=== PATIENT | male | born 1985 | race Caucasian/White ===

== ENCOUNTER → 2016-04-13 | Outpatient (CLI) | payer OTHER ==
--- NOTE | 2016-04-14 01:38 | REP ---
Clinical: Chest pain . Comparison: None . Technique: PA and lateral. Findings: The mediastinum and cardiac silhouette are normal. The lung corea are clear and without acute consolidation, effusion, or pneumothorax. The skeletal structures are intact and normal. Impression: 1. No acute cardiopulmonary process. Signed by Rodolfo Villatoro MD 04/14/2016 01:29 A
== END ==
LOC: M WUC 13:17
PROVIDERS: ATTEND Nurse Practitioner Family
DX: R07.89 Other chest pain (principal)

== ENCOUNTER → 2016-05-12 | Outpatient (CLI) | payer OTHER ==
[~2016-05-12] MED LIST: E-Z PAQUE 60% w/v SUSP 355ML BOTTLE As Ordered ONE; E-Z-GAS II EFFERVESCENT PACKET (SODIUM BICARB./CITRIC ACID/SIMETHICONE) As Ordered ONE; E-Z-HD 98% w/w 340GM SUSP BTL As Ordered ONE; OMEP40CA2 PO
--- NOTE | 2016-05-12 10:36 | REP ---
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 Double contrast esophagram is performed. Swallowing mechanism appears normal with prompt passage of liquid barium through the oropharynx and hypopharynx into the esophagus. Esophagus is well distended with normal contour, caliber and peristalsis. There is no stricture or mass. There is free flow of barium through the gastroesophageal junction. There is no evidence of hiatal hernia. I did not see gastroesophageal reflux during this exam. IMPRESSION: Negative esophagram. Fluoroscopy time 56 seconds. Signed by Jerome Landeros MD 05/12/2016 04:55 P
== END ==
LOC: M RAD 08:54
PROVIDERS: ATTEND Physician Assistant Medical
DX: R13.10 Dysphagia, unspecified (principal); R12 Heartburn

== ENCOUNTER → 2016-05-15 | Outpatient (CLI) | payer OTHER ==
[~2016-05-15] VITALS: Ht 170.2 cm; Wt 73.0 kg
[~2016-05-15] MED LIST changes: -E-Z PAQUE 60% w/v SUSP 355ML BOTTLE As Ordered ONE; -E-Z-GAS II EFFERVESCENT PACKET (SODIUM BICARB./CITRIC ACID/SIMETHICONE) As Ordered ONE; -E-Z-HD 98% w/w 340GM SUSP BTL As Ordered ONE; +LIDOCAINE 2% INJ 100 MG/5 ML SDV (FOR ANES.) As Ordered ONE; +NS 1,000 ML IV SCH; +PROPOFOL 200 MG/20 ML VIAL As Ordered ONE
--- NOTE | 2016-05-15 14:38 | ROOR ---
Patient Name: Shaji Ryan Procedure Date: 05/15/2016 2:09 PM Date of : 1985 Age: 30 Room: [facility] Gender: Male Note Status: Finalized Procedure: Upper GI endoscopy Indications: Esophageal dysphagia, Dysphagia Providers: Bakari DOLL MD Referring MD: Kayden Corey Requesting Provider: Medicines: Monitored Anesthesia Care Complications: No immediate complications. Procedure: Pre-Anesthesia Assessment: - The heart rate, respiratory rate, oxygen saturations, blood pressure, adequacy of pulmonary ventilation, and response to care were monitored throughout the procedure. The Endoscope was introduced through the mouth, and advanced to the second part of duodenum. The upper GI endoscopy was accomplished without difficulty. The patient tolerated the procedure well. Findings: A low-grade of narrowing Schatzki ring (acquired) was found at the gastroesophageal junction. A TTS dilator was passed through the scope. Dilation with an 18-19-20 mm balloon dilator was performed to 18 mm. The dilation site was examined and showed moderate improvement in luminal narrowing. Non-severe esophagitis was found at the gastroesophageal junction. Biopsies were taken with a cold forceps for histology. This was biopsied with a cold forceps for evaluation of eosinophilic esophagitis. The entire examined stomach was normal. The examined duodenum was normal. Impression: - Low-grade of narrowing Schatzki ring with inflammation/esophagitis. Dilated. - Non-severe esophagitis and mild mucosal edema/longitudinal markings in mid esophagus. Biopsied to evaluate for reflux vs eosinophilic esophagitis. - Normal stomach. - Normal examined duodenum. Recommendation: - Observe patient's clinical course. - Use Prilosec (omeprazole) 40 mg PO BID. - (the script was sent to your pharmacy on file) - Telephone endoscopist for pathology results in 2 weeks. Bakari Doll MD Bakari DOLL MD 05/15/2016 2:38:15 PM This report has been signed electronically. Number of Addenda: 0 Note Initiated On: 05/15/2016 2:09 PM Estimated Blood Loss: Estimated blood loss: none.
--- NOTE | 2016-05-15 14:51 | ROOR ---
Patient Name: Shaji Ryan Procedure Date: 05/15/2016 2:10 PM Date of : 1985 Age: 30 Room: [facility] Gender: Male Note Status: Finalized Procedure: Colonoscopy Indications: Hematochezia, Change in bowel habits Providers: Bakari DOLL MD Referring MD: Kayden Corey Requesting Provider: Medicines: Monitored Anesthesia Care Complications: No immediate complications. Procedure: Pre-Anesthesia Assessment: - The heart rate, respiratory rate, oxygen saturations, blood pressure, adequacy of pulmonary ventilation, and response to care were monitored throughout the procedure. The Colonoscope was introduced through the anus and advanced to 8 cm into the ileum. The colonoscopy was performed without difficulty. The patient tolerated the procedure well. The quality of the bowel preparation was good. Findings: The perianal and digital rectal examinations were normal. Small Internal Hemorrhoids. The terminal ileum appeared normal. The entire examined colon appeared normal on direct and retroflexion views. Impression: - Small Internal Hemorrhoids. - The examined portion of the ileum was normal. - The entire colon is normal on direct and retroflexion views. - No specimens collected. Recommendation: - Use fiber, for example Citrucel, Fibercon, Konsyl or Metamucil. Bakari Doll MD Bakari DOLL MD 05/15/2016 2:50:44 PM This report has been signed electronically. Number of Addenda: 0 Note Initiated On: 05/15/2016 2:10 PM Estimated Blood Loss: Estimated blood loss: none.
[2016-05-15 15:15] VITALS: BP 113/80
== END ==
LOC: M OPP 11:05
PROVIDERS: ATTEND Internal Medicine Gastroenterology
DX: K92.1 Melena (principal); R19.4 Change in bowel habit; K64.8 Other hemorrhoids; R13.14 Dysphagia, pharyngoesophageal phase; K22.2 Esophageal obstruction; K20.0 Eosinophilic esophagitis; R12 Heartburn

== ENCOUNTER → 2017-04-19 | Outpatient (REF) | payer OTHER ==
[2017-04-19 23:14] LABS: INFLUENZA A AMPLIFICATION NEGATIVE (NEGATIVE); INFLUENZA B AMPLIFICATION POSITIVE (NEGATIVE); RSV AMPLIFICATION NEGATIVE (NEGATIVE)
== END ==
LOC: M LAB REF 21:42
DX: J11.1 Influenza due to unidentified influenza virus with other respiratory manifestations (principal)
CPT/HCPCS: 87631

== ENCOUNTER 2017-10-22 08:32 | Day surgery (SDC) | payer OTHER ==
[2017-10-22] MEDS ORDERED: LIDOCAINE 2% INJ 100 MG/5 ML SDV (FOR ANES.) As Ordered (08:36)
[2017-10-22] MEDS: NS 1,000 ML IV (08:45)
[2017-10-22] MEDS ORDERED: PROPOFOL 200 MG/20 ML VIAL As Ordered (09:05)
[2017-10-22] MEDS ORDERED: fentaNYL 100 MCG/2 ML INJECTION (J3010) As Ordered (09:06)
== END 2017-10-22 10:03 | disposition home or self-care (01) ==
LOC: M OPP 08:32
DX: K20.0 Eosinophilic esophagitis (principal); K22.8 Other specified diseases of esophagus; R13.10 Dysphagia, unspecified; R12 Heartburn; Z79.899 Other long term (current) drug therapy; F17.210 Nicotine dependence, cigarettes, uncomplicated; Z80.41 Family history of malignant neoplasm of ovary
CPT/HCPCS: 43239

== ENCOUNTER → 2018-07-01 | Outpatient (REF) | payer OTHER ==
[~2018-07-01] MED LIST changes: -LIDOCAINE 2% INJ 100 MG/5 ML SDV (FOR ANES.) As Ordered ONE; -NS 1,000 ML IV SCH; -PROPOFOL 200 MG/20 ML VIAL As Ordered ONE
[2018-07-01 13:38] LABS: INFLUENZA A AMPLIFICATION POSITIVE (NEGATIVE); INFLUENZA B AMPLIFICATION NEGATIVE (NEGATIVE)
== END ==
LOC: M LAB REF 12:20
PROVIDERS: ATTEND Nurse Practitioner Adult Health
DX: J06.9 Acute upper respiratory infection, unspecified (principal)

== ENCOUNTER → 2019-04-26 | Outpatient (REF) | payer BC ==
[~2019-04-26] MED LIST changes: -OMEP40CA2 PO; +OMEP40CA97 PO
== END ==
LOC: M LAB REF 16:39
PROVIDERS: ATTEND Internal Medicine
DX: R68.2 Dry mouth, unspecified (principal)

== ENCOUNTER → 2020-06-04 | Outpatient (CLI) | payer BC ==
--- NOTE | 2020-06-04 14:59 | REP ---
INDICATION: IR LEFT SCIATICA. COMPARISON: None. TECHNIQUE: Five views of the lumbar spine are provided. FINDINGS: There is straightening of the normal lumbar lordosis. Lumbar vertebral body heights are preserved. Alignment is normal. Pedicles and posterior elements are intact. There is no evidence of spondylolysis or spondylolisthesis. Sacrum and SI joints are intact. Psoas margins are symmetric. Bowel gas pattern is unremarkable. IMPRESSION: Straightening, otherwise negative lumbar spine radiographs. <Electronically signed by Andrew Sinha > 06/04/20 1878
== END ==
LOC: M RAD 10:36
PROVIDERS: ATTEND Internal Medicine
DX: M54.32 Sciatica, left side (principal)

== ENCOUNTER → 2021-05-05 | Outpatient (REF) | payer BC ==
[~2021-05-05] MED LIST changes: +OMEP40CA4 PO; -OMEP40CA97 PO
[2021-05-06 13:27] LABS: TOTAL PROTEIN 7.4 GM/DL (6.4-8.2)
[2021-05-06 13:32] LABS: VITAMIN B12 LEVEL 507 PG/ML (247-911)
[2021-05-08 17:08] LABS: FREE KAPPA LIGHT CHAINS SERUM 12.8 mg/L (3.3-19.4); FREE LAMBDA LIGHT CHAINS SERUM 12.3 mg/L (5.7-26.3); KAPPA/LAMBDA RATIO SERUM 1.04 (0.26-1.65)
[2021-05-09 11:59] LABS: ALBUMIN 4.85 GM/DL (3.29-5.55); ALBUMIN % 65.6 % (55.8-66.1); ALPHA-1-GLOBULIN % 3.7 % (2.9-4.9); ALPHA-1-GLOBULINS 0.27 GM/DL (0.17-0.41); ALPHA-2-GLOBULINS 0.64 GM/DL (0.42-0.99); ALPHA-2-GLOBULINS % 8.6 % (7.1-11.8); BETA-1-GLOBULINS 0.42 GM/DL (0.28-0.60); BETA-1-GLOBULINS % 5.7 % (4.7-7.2); BETA-2-GLOBULINS 0.38 GM/DL (0.19-0.55); BETA-2-GLOBULINS % 5.2 % (3.2-6.5); GAMMA GLOBULIN % 11.2 % (11.1-18.8); GAMMA GLOBULINS 0.83 GM/DL (0.65-1.58)
== END ==
LOC: M LAB REF 12:04
PROVIDERS: ATTEND Internal Medicine
DX: G60.9 Hereditary and idiopathic neuropathy, unspecified (principal)

== ENCOUNTER → 2021-06-11 | Outpatient (CLI) | payer BC | LOC: M PLAIMG 08:30 | PROVIDERS: ATTEND Internal Medicine | DX: M51.26 Other intervertebral disc displacement, lumbar region (principal) ==

== ENCOUNTER → 2022-05-29 | Outpatient (CLI) | payer BC ==
[2022-05-29 18:04] LABS: BASO % 0.5 % (0.0-1.0); EOS # 0.4 10^3/uL (0.0-0.5); EOS % 6.5 % (0.0-3.0); HEMATOCRIT 42.7 % (42.0-52.0); HEMOGLOBIN 14.7 g/dl (13.5-17.5); LYMPH # 1.9 10^3/uL (1.5-5.0); MEAN CORPUSCULAR HEMOGLOBIN 29.9 pg (27.0-33.0); MEAN CORPUSCULAR HGB CONC 34.4 g/dl (32.0-36.5); MEAN CORPUSCULAR VOLUME 86.8 fl (80.0-96.0); MONO # 0.6 10^3/uL (0.0-0.8); MONO % 8.8 % (2.0-8.0); NEUTROPHILS # 3.3 10^3/uL (1.5-8.5); NEUTROPHILS % 52.9 % (36.0-66.0); PLATELET COUNT, AUTOMATED 236 10^3/uL (150-450); RED BLOOD COUNT 4.92 10^6/uL (4.30-6.10); WHITE BLOOD COUNT 6.3 10^3/uL (4.0-10.0)
[2022-05-29 18:27] LABS: ERYTHROCYTE SEDIMENTATION RATE < 1 mm/hr (0-15)
[2022-05-29 18:30] LABS: C REACTIVE PROTEIN QUANTITATIV < 0.40 MG/DL (<1.0)
[2022-05-29 18:32] LABS: RHEUMATOID FACTOR QUANT < 3.5 IU/ML (<14)
[2022-06-01 13:07] LABS: ANTINUCLEAR ANTIBODIES DIRECT Negative (Negative)
== END ==
LOC: M PLALAB 16:05
PROVIDERS: ATTEND Orthopaedic Surgery
DX: M51.36 Other intervertebral disc degeneration, lumbar region (principal)

== ENCOUNTER → 2022-07-06 | Outpatient (CLI) | payer BC | LOC: M PLAIMG 15:41 | PROVIDERS: ATTEND Orthopaedic Surgery | DX: M16.12 Unilateral primary osteoarthritis, left hip (principal) ==

== ENCOUNTER → 2023-12-20 | Outpatient (CLI) | payer BC | LOC: M WUC 13:24 | PROVIDERS: ATTEND Nurse Practitioner Family | DX: R06.02 Shortness of breath (principal); R05.9 Cough, unspecified ==

== ENCOUNTER → 2024-08-01 | Outpatient (CLI) | payer BC | LOC: M RAD 14:52 | PROVIDERS: ATTEND Internal Medicine | DX: N45.1 Epididymitis (principal) ==